=== PATIENT | male | born 1985 | race Caucasian/White ===

== ENCOUNTER 2016-08-25 19:23 | Observation (INO) | payer BC ==
--- NOTE | 2016-08-25 19:43 | EDPHY ---
H & P Smoking Status: Never smoked HPI/ROS: CHIEF COMPLAINT: Postoperative bleeding HISTORY OF PRESENT ILLNESS: tonsillectomy several weeks ago with ongoing bleeding. He has noted no active bleeding from the posterior pharynx. He was actually seen by his ENT physician today, Dr. Snow. They performed cautery which was unsuccessful. he notes ongoing bleeding and some difficulty managing this at times. No aspiration to speak of. No difficulty breathing. No chest pain. No fever chills. REVIEW OF SYSTEMS: Ten systems reviewed and are negative unless otherwise noted in the HPI EXAMINATION General Appearance: Alert, no distress Head: normocephalic, atraumatic ENT, Mouth: Active bleeding without compromise of airway Respiratory: No acute distress Neurological: A&O Skin: Warm and dry, no rash MDM: Post tonsillectomy active bleeding from the posterior pharynx. At time of my examination, ENT surgeon Zahra Snow PA-C was already there at bedside. She will perform cautery at this time. He is awake and alert, Managing his airway without assistance, his vital signs are stable and he is in no acute distress. 2020 Notified by nursing staff that there was some difficulty in obtaining cauterization of the bleeding. The patient did experience a vasovagal episode with near-syncope but not syncope. I was notified that at this time the ENT PA has contacted her attending and they will be taking the patient to the OR for definitive care KIMBERLI. I did personally examine him at this time. he is pale and tachycardic, but he is awake and alert, normotensive and in no acute distress. They are currently obtaining IV access, blood bank and laboratory studies. He will be taken to the OR as soon as available. His airway remains patent and he is no respiratory distress. SUPERVISION: Patient was evaluated in conjunction with the supervising physician. Please see their note for details. (Darío Burnett) Constitutional: Initial Vital Signs Temperature (C) 37.2 C 08/25/16 19:26 Heart Rate 118 H 08/25/16 19:26 Respiratory Rate 20 08/25/16 19:26 Blood Pressure 159/111 H 08/25/16 19:26 O2 Sat (%) 98 08/25/16 19:26 O2 Delivery Mode Room Air Allergies/Adverse Reactions: No Known Allergies Allergy (Unverified 08/25/16 19:26) Home Medications: Medication Instructions Recorded NK [No Known Home Meds] 08/25/16 MDM/Departure - MDM Medications Given: Discontinued Medications Acetaminophen (Tylenol) 650 mg PO Q6 PRN PRN Reason: Pain, Mild/Fever, Can Take PO Stop: 02/22/17 08:38 Last Admin: 08/26/16 08:55 Dose: 650 mg Sodium Chloride (Ns) 1,000 mls @ 0 mls/hr IV ONCE ONE PRN Reason: Wide Open Stop: 08/25/16 20:59 Last Admin: 08/25/16 20:30 Dose: 1,000 mls Sodium Chloride (Ns) 1,000 mls @ 0 mls/hr IV ONCE ONE PRN Reason: Wide Open Stop: 08/25/16 21:31 Last Admin: 08/25/16 21:30 Dose: 1,000 mls Ondansetron HCl (Zofran) 4 mg IVP EDNOW ONE Stop: 08/25/16 20:36 Last Admin: 08/25/16 20:35 Dose: 4 mg ED Course/Re-evaluation: This patient was seen and evaluated by the physician diagnostic assistant. I have reviewed the chart and agree with the plan of care as documented. I am a secondary supervising physician. (Ana Gomez) - Depart Disposition: [facility] Acute Clinical Impression: Postoperative bleeding from mouth, Vasovagal episode Condition: Good
[2016-08-25] MEDS ORDERED: ONDANSETRON 4 MG/2 ML VIAL ONE (20:34)
[2016-08-25] MEDS ORDERED: ONDANSETRON 4 MG/2 ML VIAL IVP ONE (20:35)
[2016-08-25 20:43] LABS: % IMMATURE GRANULYOCYTES 0.4 % (0.0-1.1); ABSOLUTE IMMATURE GRANULOCYTES 0.05 10^3/uL (0.00-0.10); ADD DIFF? NO; ADD MORPH? NO; ADD SCAN? NO; ATYPICAL LYMPHOCYTE FLAG 40 (0-99); FRAGMENT RBC FLAG 0 (0-99); HEMATOCRIT 32.7 % (40.0-51.0); LEFT SHIFT FLG 0 (0-99); LIPEMIA HEMOLYSIS FLAG 80 (0-99); MEAN CELL HEMOGLOBIN 30.7 pg (27.9-34.1); MEAN CELL HEMOGLOBIN CONCENTR. 33.6 g/dL (32.4-36.7); MEAN CELL VOLUME 91.3 fL (81.5-99.8); MEAN PLATELET VOLUME 11.5 fL (8.7-11.7); PLATELET CLUMPS FLAG 10 (0-99); PLATELET COUNT 271 10^3/uL (150-400); RED BLOOD CELL COUNT 3.58 10^6/uL (4.40-6.38); RED CELL DISTRIBUTION WIDTH 13.6 % (11.5-15.2)
[2016-08-25] MEDS ORDERED: ONDANSETRON 4 MG/2 ML VIAL IVP PRN (20:53)
[2016-08-25] MEDS ORDERED: OXYCODONE/APAP 5/325 TAB PO PRN (20:56)
[2016-08-25] MEDS ORDERED: NS 1,000 ML IV ONE ×2 (20:58→21:30)
--- NOTE | 2016-08-26 00:20 | GCON ---
[f rep st] CONSULTATION HISTORY OF PRESENT ILLNESS: Patient is a 30-year-old gentleman whom I saw earlier today in the office for mild postoperative tonsil bleeding. He underwent tonsillectomy on 07/31 and had been having some bleeding for the past week. He describes about a tablespoon of blood lasting about 10 minutes daily. In the office this afternoon at 4:45 p.m., I cauterized him with silver nitrate. I received a call at 7 p.m. stating that he was bleeding profusely. I had the patient come directly to the emergency room. PHYSICAL EXAMINATION: Patient is spitting up blood into a cup. He has already filled at least a half of a cup. Suction cautery was performed. After about a half hour, bleeding was ceased. I did inject lidocaine plus epinephrine into the palate and the tonsillar fossa for compression. Patient then had 2 vasovagal incidences. Throughout this time, he probably vomited up about 1 to 1- 1/[address] Young was notified and arrived at the hospital in preparation to take him to the OR. However, just prior to going up to the OR, bleeding had completely ceased. CBC was drawn and his hemoglobin was found to be 11. ASSESSMENT AND PLAN: Patient with postoperative tonsillectomy bleed, able to control here in the OR. Because he had such significant blood loss, will keep him overnight for monitoring and to make sure that there is no further bleeding. If his hgb drops below 7, will transfuse him with 2 units of blood. If not, the plan will be for discharge in the morning. /[id number]/MODL MTDD
[2016-08-26 04:41] LABS: HEMATOCRIT 25.9 % (40.0-51.0); HEMOGLOBIN 8.6 g/dL (13.7-17.5); MEAN CELL HEMOGLOBIN 30.2 pg (27.9-34.1); MEAN CELL HEMOGLOBIN CONCENTR. 33.2 g/dL (32.4-36.7); MEAN CELL VOLUME 90.9 fL (81.5-99.8); RED BLOOD CELL COUNT 2.85 10^6/uL (4.40-6.38); RED CELL DISTRIBUTION WIDTH 13.5 % (11.5-15.2)
[2016-08-26 07:29] VITALS: BP 125/72; PULSE 90; RESP 16; O2SAT 93
[2016-08-26 08:28] VITALS: TEMP 101.5
[2016-08-26] MEDS ORDERED: ACETAMINOPHEN 325 MG TAB PO PRN (08:39)
--- NOTE | 2016-08-26 10:49 | SOAPPROG ---
SOAP Progress Note Assessment/Plan: Pt with post op tonsil bleed yesterday. He is stable this am. o:- oc- dry Plan:Pt ok for discharge. Call if any further bleeding. 08/26/16 10:48 Objective: Vital Signs Temp Pulse Resp BP Pulse Ox 38.6 C H 90 16 125/72 H 93 08/26/16 08:20 08/26/16 07:26 08/26/16 07:26 08/26/16 07:26 08/26/16 07:26 Laboratory Results 08/26/16 04:15 08/25/16 08/26/16 08/27/16 05:59 05:59 05:59 Intake Total 1800 Balance 1800 - Pending Discharge Pending Discharge Within 24 Hours: Yes Pending Discharge Date: 08/27/16 Pending Discharge Time: 11:00 ICD10 Worksheet Patient Problems: Problems Problem Status Diagnosed Postoperative bleeding from mouth Acute Vasovagal episode Acute
== END 2016-08-26 11:55 | disposition home or self-care (01) ==
LOC: F2W 21:56
PROVIDERS: ADMIT Physician Assistant; ATTEND Otolaryngology
PROC: 0W33XZZ Control Bleeding in Oral Cavity and Throat, External Approach (ICD-10-PCS; principal; 2016-08-25)
DX: K91.840 Postprocedural hemorrhage of a digestive system organ or structure following a digestive system procedure (principal); R55 Syncope and collapse
CPT/HCPCS: 42960; 96374; 99285; G0378; J2405

== ENCOUNTER 2016-08-30 03:10 | Observation (INO) | payer BC ==
--- NOTE | 2016-08-30 03:21 | EDPHY ---
H & P Stated Complaint: TONSILECTOMY 07/31/16, BLEEDING OFF/ON TONIGHT, ENT TO MEET HERE AT ER HPI/ROS: HPI CHIEF COMPLAINT: Postoperative tonsillar bleed HISTORY OF PRESENT ILLNESS: This patient is a 30-year-old male otherwise healthy he had a tonsillectomy done by Dr. Young on July 31, this was complicated by a posterior tonsillar bleed last week he had cauterization done in the emergency room and went home. He states around midnight tonight he started noticing some bleeding in the posterior pharynx this then resolved at 1: 00 a.m. however then reoccurred any decided to come to the emergency room for evaluation. He did notify his ENT doctor his ENT doctor is planning to meet him here in the emergency room. Upon arrival here in the emergency room he does tell me that the bleeding has since slowed down the and now he has clear secretions. Past Medical History: No significant medical history Past Surgical History: recent tonsillectomy on July 31 Social History: denies drugs alcohol tobacco products Family History: noncontributory ROS REVIEW OF SYSTEMS: A comprehensive 10 point review of systems is otherwise negative aside from elements mentioned in the history of present illness. Exam Constitutional triage nursing summary reviewed, vital signs reviewed, awake/ alert. Eyes normal conjunctivae and sclera, EOMI, PERRLA. HENT posterior pharynx: appears normal, no evidence of active bleeding or hemorrhaging, tonsillar Bed looks well-healed, moist mucus membranes, no epistaxis, neck supple/ no meningismus, no raccoon eyes. Respiratory clear to auscultation bilaterally, normal breath sounds, no respiratory distress, no wheezing. Cardiovascular rate normal, regular rhythm, no murmur, no edema, distal pulses normal. Gastrointestinal soft, non-tender, no rebound, no guarding, normal bowel sounds, no distension, no pulsatile mass. Genitourinary no CVA tenderness. Musculoskeletal no midline vertebral tenderness, full range of motion, no calf swelling, no tenderness of extremities, no meningismus, good pulses, neurovascularly intact. Skin pink, warm, & dry, no rash, skin atraumatic. Neurologic awake, alert and oriented x 3, AAOx3, moves all 4 extremities equally, motor intact, sensory intact, CN II-XII intact, normal cerebellar, normal vision, normal speech. Psychiatric normal mood/affect. Heme/Lymph/Immune no lymphadenopathy. Differential Diagnosis: This patient had an IV established will check basic blood work ENT has been consulted and plans to meet the patient here. At this time patient is hemodynamically stable no acute distress with no significant active bleeding at this time. Medical Decision Making: This patient be going to the operating room with Dr. Young. plan is for operative care of this postoperative bleed however this time is hemodynamically stable no acute distress resting comfortably no significant bleeding. Plan is for IV establishment, IV fluids for gentle hydration, blood work and type and screen. Plan is for gentle hydration IV fluids IV establishment, basic blood work including coags, type and screen and to the OR for postoperative tonsillar bleeding. 0335: Dr. Young here at bedside. Source: Patient - Personal History Current Tetanus/Diphtheria Vaccine: Yes - Medical/Surgical History Hx Asthma: No Hx Chronic Respiratory Disease: No Hx Diabetes: No Hx Cardiac Disease: No Hx Renal Disease: No Hx Cirrhosis: No Hx Alcoholism: No Hx HIV/AIDS: No Hx Splenectomy or Spleen Trauma: No Other PMH: tonsilectomy, appendectomy - Social History Smoking Status: Never smoked Constitutional: Initial Vital Signs Temperature (C) 36.6 C 08/30/16 03:17 Heart Rate 79 08/30/16 03:17 Respiratory Rate 18 08/30/16 03:17 Blood Pressure 145/95 H 08/30/16 03:17 O2 Sat (%) 98 08/30/16 03:17 O2 Delivery Mode Room Air Allergies/Adverse Reactions: No Known Allergies Allergy (Unverified 08/25/16 19:26) Home Medications: Medication Instructions Recorded NK [No Known Home Meds] 08/25/16 Departure - Departure Disposition: [facility] Inpatient Acute Clinical Impression: Tonsillar bleed Condition: Fair
[2016-08-30] MEDS ORDERED: NS 1,000 ML IV ONE (03:32)
[2016-08-30 03:50] LABS: % IMMATURE GRANULYOCYTES 0.4 % (0.0-1.1); ABSOLUTE IMMATURE GRANULOCYTES 0.02 10^3/uL (0.00-0.10); ADD DIFF? NO; ADD MORPH? NO; ADD SCAN? YES; FRAGMENT RBC FLAG 0 (0-99); HEMATOCRIT 28.7 % (40.0-51.0); HEMOGLOBIN 9.3 g/dL (13.7-17.5); LEFT SHIFT FLG 0 (0-99); LIPEMIA HEMOLYSIS FLAG 80 (0-99); MEAN CELL HEMOGLOBIN 29.2 pg (27.9-34.1); MEAN CELL HEMOGLOBIN CONCENTR. 32.4 g/dL (32.4-36.7); MEAN CELL VOLUME 90.3 fL (81.5-99.8); MEAN PLATELET VOLUME 11.3 fL (8.7-11.7); PLATELET CLUMPS FLAG 0 (0-99); PLATELET COUNT 204 10^3/uL (150-400); RED BLOOD CELL COUNT 3.18 10^6/uL (4.40-6.38); RED CELL DISTRIBUTION WIDTH 13.8 % (11.5-15.2)
[2016-08-30 03:51] LABS: ANION GAP 12 mEq/L (8-16); ATYPICAL LYMPHOCYTE FLAG 150 (0-99); CALCIUM 8.7 mg/dL (8.5-10.4); CARBON DIOXIDE 27 mEq/l (22-31); CHLORIDE 105 mEq/L (97-110); CREATININE 0.9 mg/dL (0.7-1.3); GLOMERULAR FILTRATION RATE > 60; GLUCOSE 100 mg/dL (70-100); POTASSIUM 4.2 mEq/L (3.5-5.2); SODIUM 144 mEq/L (134-144)
[2016-08-30 03:54] LABS: INR 1.06 (0.83-1.16); PROTIME(PATIENT) 13.7 SEC (12.0-15.0)
[2016-08-30] MEDS ORDERED: fentaNYL 100 MCG/2 ML INJ ONE (04:04)
[2016-08-30] MEDS ORDERED: PROPOFOL 200 MG/20 ML VIAL ONE ×2 (04:04→04:30)
[2016-08-30] MEDS ORDERED: MIDAZOLAM 2 MG/2 ML VIAL ONE (04:08)
[2016-08-30] MEDS ORDERED: LIDOCAINE 2% 5 ML SDV ONE (04:08)
[2016-08-30] MEDS ORDERED: SUCCINYLCHOLINE CHLORIDE*ANESTHESIA ONLY*200 MG/10 ML SYR IVP ONE (04:09)
[2016-08-30] MEDS ORDERED: DEXAMETHASONE 4 MG/ML VIAL ONE ×2 (04:31)
[2016-08-30] MEDS ORDERED: ONDANSETRON 4 MG/2 ML VIAL ONE (04:31)
[2016-08-30 04:35] LABS: SCAN NEGATIVE
--- NOTE | 2016-08-30 04:36 | GHP ---
[f rep st] PREOP HISTORY AND PHYSICAL DATE OF ADMISSION: 08/30/2016 IDENTIFYING DATA: This is a patient with a postoperative tonsil bleed. HISTORY OF PRESENT ILLNESS: He had his tonsils removed 07/31/2016. He did well postoperatively. On 08/26/2016, he had some bleeding that was controlled in the emergency room with suction cautery. He did have a fair bit of bleeding at that time prior to evaluation in the emergency room and during th e cauterization. We were able to control it in the emergency room, and even kept him overnight for o bservation. He did wall. He did have his hemoglobin drop to 8.6. Today, he has had a slight bit of oozing from the right tonsillar fossa again. This has been the loc ation that he has had issues with. He had a half cup of blood with a clot. PHYSICAL EXAM: GENERAL: He is in no acute distress. Does have a clot in the right tonsillar fossa. HEART: Regular rate and rhythm. No murmurs, gallops, or rubs. LUNGS: Clear to auscultation witho ut wheezing. LABORATORY DATA: CBC, PT/PTT, and metabolic panel are pending at the time of this dictation. IMPRESSION: Right-sided postoperative tonsil bleed over 3-1/2 weeks out at this point. He did have some hypertension at the time of his surgery initially. I do not know if that is controlled on a day -to-day basis. RECOMMENDATIONS: I had a detailed discussion with the patient and his . We will go to the opera ting room at this point for exam under anesthesia and cauterization. I had detailed discussion with them regarding the risks of bleeding, infection, and anesthesia. Top of the benefits of controlling the bleeding. Top of the alternatives is of attempting that here in the emergency room again, but elvia zeen, we do not have a lot of room in terms of his hemoglobin to go lower. They understood, agreed to proceed, and all questions were answered. /[id number]/MODL
[2016-08-30] MEDS ORDERED: LABETALOL HCL 5 MG/ML 20 ML MDV ONE (04:37)
[2016-08-30] MEDS ORDERED: ONDANSETRON 4 MG/2 ML VIAL IVP PRN (05:03)
[2016-08-30] MEDS ORDERED: HYDROCOD/APAP 7.5/325 IN 15ML UDCUP PO PRN (05:03)
[2016-08-30] MEDS ORDERED: LR 1,000 ML IV SCH (05:15)
--- NOTE | 2016-08-30 05:20 | GOP ---
[f rep st] OPERATIVE REPORT DATE OF OPERATION: 08/30/2016 SURGEON: Honorio Young MD ANESTHESIA: General endotracheal anesthesia. PREOPERATIVE DIAGNOSIS: Postoperative tonsil bleed. POSTOPERATIVE DIAGNOSIS: Postoperative tonsil bleed. PROCEDURE PERFORMED: Cauterization of postoperative bleed. FINDINGS: Oozing from the right tonsillar fossa. SPECIMENS: None. ESTIMATED BLOOD LOSS: Intraoperatively was 50 mL. DESCRIPTION OF PROCEDURE: The patient was placed in the supine position and orally endotracheally in tubated. He had some bleeding from the right tonsillar fossa. This was cauterized with good control . The stomach was suctioned. He tolerated the procedure well and was in good condition at the end o f the procedure. /[id number]/MODL
[2016-08-30 12:08] VITALS: BP 111/67; PULSE 75; RESP 14; TEMP 98.2; O2SAT 98
--- NOTE | 2016-08-30 12:28 | SOAPPROG ---
SOAP Progress Note Assessment/Plan: pt stable after going to OR this am for post op bleed. O- tonsil dry Plan:I am awaiting a hgb that was drawn at noon. As long as that is above 8 he can be discharged. Discussed his BP, currently it is running around 120/70. i have asked him to check it next few days. If elevated he needs to see his PCP. 08/30/16 12:26 08/30/16 12:27 Objective: Vital Signs Temp Pulse Resp BP Pulse Ox 36.8 C 75 14 111/67 98 08/30/16 12:06 08/30/16 12:06 08/30/16 12:06 08/30/16 12:06 08/30/16 12:06 08/29/16 08/30/16 08/31/16 05:59 05:59 05:59 Intake Total 1425 100 Output Total 50 1650 Balance 1375 -1550 PT 13.7 SEC (12.0-15.0) 08/30/16 03:25 INR 1.06 (0.83-1.16) 08/30/16 03:25 ICD10 Worksheet Patient Problems: Problems Problem Status Diagnosed Tonsillar bleed Acute Postoperative bleeding from mouth Acute Vasovagal episode Acute
== END 2016-08-30 15:05 | disposition home or self-care (01) ==
LOC: INTOOBSV 03:32 → F3N 05:29
PROVIDERS: ADMIT Otolaryngology; ATTEND Otolaryngology
PROC: 0W33XZZ Control Bleeding in Oral Cavity and Throat, External Approach (ICD-10-PCS; principal; 2016-08-30 05:00)
DX: K91.840 Postprocedural hemorrhage of a digestive system organ or structure following a digestive system procedure (principal); D62 Acute posthemorrhagic anemia
CPT/HCPCS: 42962; 99285; G0378; J0330; J1100; J2250; J2405; J2704; J3010; J3490